=== PATIENT | male | born 1960 | race Caucasian/White ===

== ENCOUNTER 2016-11-23 16:31 | Emergency (ER) | payer SELFPAY ==
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
== END 2016-11-23 18:15 | disposition home or self-care (01) ==
LOC: ER 16:31
DX: T23.261A Burn of second degree of back of right hand, initial encounter (principal); T31.0 Burns involving less than 10% of body surface; F17.210 Nicotine dependence, cigarettes, uncomplicated; Z23 Encounter for immunization; W86.1XXA Exposure to industrial wiring, appliances and electrical machinery, initial encounter; Y92.69 Other specified industrial and construction area as the place of occurrence of the external cause